=== PATIENT | male | born 1950 | race Caucasian/White ===

== ENCOUNTER 2017-06-04 08:21 | Emergency (ER) | payer OTHER ==
[2017-06-04 08:29] VITALS: BMI 33.9
[2017-06-04] MEDS ORDERED: SODIUM CHLORIDE 1,000 ML IV STA ×2 (08:36→10:52)
--- NOTE | 2017-06-04 09:32 | PDOC ---
History of Present Illness - General Chief Complaint: SIRS, Suspected/Possible Stated Complaint: FEVER, CONSTIPATED Time Seen by Provider: 06/04/17 08:35 History Source: Patient Exam Limitations: No Limitations - History of Present Illness Initial Comments: 06/04/17 09:58 67-year-old male presents with fever for the past 2 days relieved with Tylenol associated with nausea without vomiting, constipation and generalized abdominal bloating. Patient states mild dry cough but denies difficulty breathing, chest pain, or sore throat. Patient also denies headache and myalgia. Patient does state his glucose was approximately 300 this morning when he checked it. Patient states is on insulin and takes it routinely. Patient denies recent travel, recent illness, recent sick contact. Timing/Duration: other ( 3 days) Associated Symptoms: reports: cough, fever/chills, loss of appetite, nausea/ vomiting, weakness Past History - Travel Traveled outside of the country in the last 30 days: No - Past Medical History Allergies/Adverse Reactions: Allergies Allergy/AdvReac Type Severity Reaction Status Date / Time No Known Drug Allergies Allergy Verified 06/04/17 08:26 Home Medications: Ambulatory Orders Lantus 30 units PO BID 06/04/17 Lisinopril 10 mg PO DAILY 06/04/17 Prilosec 20 mg PO DAILY 06/04/17 Simvastatin 20 mg PO DAILY 06/04/17 Anemia: No Asthma: No Cancer: No Cardiac Disorders: No CVA: No COPD: No CHF: No Dementia: No Diabetes: Yes GI Disorders: No Disorders: No HTN: Yes Hypercholesterolemia: Yes Liver Disease: No Seizures: No Thyroid Disease: No - Surgical History Abdominal Surgery: No Appendectomy: No Cardiac Surgery: No Cholecystectomy: No Lung Surgery: No Neurologic Surgery: No Orthopedic Surgery: No - Immunization History Immunization Up to Date: Yes - Suicide/Smoking/Psychosocial Hx Smoking History: Former smoker Have you smoked in the past 12 months: No If you are a former smoker, when did you quit?: 15YRS AGO Information on smoking cessation initiated: No Hx Alcohol Use: Yes (SOCIALLY) Substance Use Type: None Hx Substance Use Treatment: No Patient Lives Alone: No Review of Systems - Review of Systems Constitutional: Yes: Chills, Fever Respiratory: Yes: Cough. No: Shortness of Breath Cardiac (ROS): No: Symptoms Reported ABD/GI: Yes: Constipated, Nausea, Poor Appetite, Poor Fluid Intake : No: Symptoms Reported Musculoskeletal: No: Symptoms Reported Integumentary: No: Symptoms Reported Neurological: No: Symptoms reported Endocrine: Yes: See HPI *Physical Exam - Vital Signs Last Vital Signs Temp Pulse Resp BP Pulse Ox 98.3 F 70 20 126/73 94 L 06/04/17 08:26 06/04/17 08:26 06/04/17 08:26 06/04/17 08:26 06/04/17 08:26 - Physical Exam General Appearance: Yes: Nourished, Appropriately Dressed. No: Apparent Distress HEENT: positive: EOMI, SALLIE Neck: positive: Supple Respiratory/Chest: positive: Lungs Clear, Normal Breath Sounds. negative: Respiratory Distress, Accessory Muscle Use Cardiovascular: positive: Regular Rhythm, Regular Rate. negative: Murmur Gastrointestinal/Abdominal: positive: Normal Bowel Sounds, Soft, Distended. negative: Tenderness Extremity: positive: Normal Capillary Refill Integumentary: positive: Normal Color, Dry, Warm Neurologic: positive: Normal Mood/Affect, Motor Strength 5/5 (ambulatory) Heart Score/ECG Review - ECG Intrepretation Rhythm: Regular Rhythm (rate 69. normal sinus rhythm. no st depression/ elevation noted. intervals are regular) ED Treatment Course - LABORATORY CBC & Chemistry Diagram: 06/04/17 09:34 06/04/17 09:34 - RADIOLOGY Radiology Studies Ordered: Category Date Time Status ABDOMEN FLAT & UPRIGHT [RAD] Stat Radiology 06/04/17 08:53 Ordered CHEST X-RAY PORTABLE* [RAD] Stat Radiology 06/04/17 08:36 Ordered Medical Decision Making - Medical Decision Making 06/04/17 09:51 Patient here with intermittent fever for the past 2 days relieved with Tylenol associated with dry cough decreased appetite associated with nausea and constipation. Patient exam had no acute findings except for abdominal distention. Patient was ordered for septic workup including an abdominal flat and upright. 06/04/17 10:52 Laboratory Tests 06/04/17 06/04/17 06/04/17 09:34 09:34 09:34 WBC 9.1 Hgb 14.9 D Hct 42.5 D Plt Count 161 D VBG pH 7.39 POC VBG pCO2 45.4 POC VBG pO2 41.0 Mixed VBG HCO3 26.7 H Sodium 133 L Potassium 3.7 Chloride 97 L Carbon Dioxide 27 Anion Gap 9 BUN 19 H Random Glucose 314 H* D Calcium 8.3 L Total Bilirubin 1.2 H Albumin 3.4 D normal saline # 2 bolus ordered 06/04/17 11:30 Laboratory Tests 06/04/17 09:34 Urine Protein 1+ H D Urine Glucose (UA) 3+ H Ur Leukocyte Esterase Negative Urine RBC (Auto) 2 06/04/17 11:34 Patient with infiltrates in the right mid and lower lung. Patient will be ordered for Levaquin upon discharge *DC/Admit/Observation/Transfer Diagnosis at time of Disposition: Pneumonia involving right lung - Discharge Dispostion Disposition: HOME Condition at time of disposition: Good - Referrals Referrals: Tyler Bennett MD [Primary Care Provider] - - Patient Instructions Printed Discharge Instructions: DI for Pneumonia -- Adult Additional Instructions: Please take Tylenol for fever and discomfort. Please drink plenty of fluids. Please check your sugar routinely. Please take antibiotics until completed. - Post Discharge Activity
[2017-06-04 09:48] LABS: BASO % 0.4 % (0-2.0); EOS % 1.7 % (0-4.5); HEMATOCRIT 42.5 % (35.4-49); HEMOGLOBIN 14.9 GM/dL (11.7-16.9); MCH 31.2 pg (25.7-33.7); MEAN CELL VOLUME 89.3 fl (80-96); MONO % 7.6 % (3.8-10.2); NEUT % 82.3 % (42.8-82.8); PLATELET COUNT 161 K/MM3 (134-434); RBC 4.76 M/mm3 (4.00-5.60); RDW 12.6 % (11.9-15.9); WHITE BLOOD COUNT 9.1 K/mm3 (4.0-10.0)
[2017-06-04 09:50] LABS: VENOUS PC02 45.4 mmHg (38-52); VENOUS PH 7.39 (7.32-7.42)
[2017-06-04 10:19] LABS: ALBUMIN 3.4 g/dl (3.4-5.0); ANION GAP 9 (8-16); BLOOD UREA NITROGEN 19 mg/dL (7-18); CALCIUM 8.3 mg/dL (8.5-10.1); CHLORIDE 97 mmol/L (98-107); CO2 27 mmol/L (21-32); SGPT/ALT 21 U/L (12-78); SODIUM 133 mmol/L (136-145)
[2017-06-04 10:21] LABS: ALK PHOS 67 U/L (45-117); BILIRUBIN,TOTAL 1.2 mg/dL (0.2-1.0); CREATININE 1.3 mg/dL (0.7-1.3)
[2017-06-04 10:33] LABS: POTASSIUM 3.7 mmol/L (3.5-5.1); SGOT/AST 24 U/L (15-37)
[2017-06-04 10:34] LABS: GLUCOSE,RANDOM 314 mg/dL (74-106)
[2017-06-04 11:15] LABS: URINE APPEARANCE CLEAR; URINE BILIRUBIN NEGATIVE (NEGATIVE); URINE BLOOD NEGATIVE (NEGATIVE); URINE COLOR YELLOW; URINE GLUCOSE (UA) 3+ (NEGATIVE); URINE KETONE NEGATIVE (NEGATIVE); URINE LEUK ESTERASE NEGATIVE (NEGATIVE); URINE NITRITE NEGATIVE (NEGATIVE); URINE UROBILINOGEN 4.0 E.U/dl mg/dL (0.2-1.0)
[2017-06-04 11:17] LABS: URINE PROTEIN 1+ (NEGATIVE)
[2017-06-04 11:20] LABS: EPI CELLS RARE /HPF (FEW); URINE HYALINE CAST 10 /lpf; URINE MUCUS RARE
[2017-06-04 12:19] VITALS: BP 135/78; PULSE 73; TEMP 98.8
--- NOTE | 2017-06-04 13:41 | EKG ---
Test Reason : Blood Pressure : / mmHG Vent. Rate : 069 BPM Atrial Rate : 069 BPM P-R Int : 190 ms QRS Dur : 082 ms QT Int : 400 ms P-R-T Axes : 039 -27 001 degrees QTc Int : 428 ms NORMAL SINUS RHYTHM NORMAL ECG WHEN COMPARED WITH ECG OF 08-DEC-2011 08:43, NO SIGNIFICANT CHANGE WAS FOUND Confirmed by RACHEL NAVARRO MD ([id number]) on 06/04/2017 1:40:55 PM Referred By: Confirmed By:RACHEL NAVARRO MD
== END 2017-06-04 12:19 | disposition home or self-care (01) ==
LOC: JER 08:21
PROC: 3E0337Z Introduction of Electrolytic and Water Balance Substance into Peripheral Vein, Percutaneous Approach (ICD-10-PCS; principal; 2017-06-04)
DX: J18.9 Pneumonia, unspecified organism (principal); I10 Essential (primary) hypertension; E11.9 Type 2 diabetes mellitus without complications; E78.00 Pure hypercholesterolemia, unspecified; Z79.4 Long term (current) use of insulin
CPT/HCPCS: 36415; 71046-TC-FY; 74019-TC-FY; 80053; 81003; 81015; 82803; 83605; 85025; 87040; 87086; 93005; 93010; 99283-25

== ENCOUNTER 2020-03-15 19:31 | Emergency (ER) | payer OTHER ==
[2020-03-15 19:34] VITALS: BMI 35.5
[2020-03-15] MEDS ORDERED: LACTATED RINGERS SOLUTION 1,000 ML/1,000 ML INFUS.BAG IV ONE (19:48)
[2020-03-15] MEDS ORDERED: ACETAMINOPHEN 1000 MG/100 ML VIAL (NON FORMULARY) IVPB ONE (19:54)
[2020-03-15] MEDS ORDERED: ACETAMINOPHEN INJECTION 100 ML IVPB ONE (19:54)
[2020-03-15] MEDS ORDERED: ONDANSETRON 4 MG/2 ML VIAL ONE (19:55)
[2020-03-15 20:37] LABS: BASO % 0.2 % (0-2.0); EOS % 2.7 % (0-4.5); HEMATOCRIT 43.1 % (35.4-49); HEMOGLOBIN 14.2 GM/dL (11.7-16.9); LYMPH % 4.4 % (8-40); MCH 29.9 pg (25.7-33.7); MEAN CELL VOLUME 90.6 fl (80-96); MEAN PLT VOLUME 7.7 fl (7.5-11.1); MONO % 5.9 % (3.8-10.2); NEUT % 86.8 % (42.8-82.8); PLATELET COUNT 196 K/MM3 (134-434); RBC 4.76 M/mm3 (4.00-5.60); RDW 13.3 % (11.9-15.9); WHITE BLOOD COUNT 8.6 K/mm3 (4.0-10.0)
[2020-03-15 20:41] LABS: VENOUS BASE EXCESS -5.4 mmol/L (-2-2); VENOUS O2 SATURATION 42.5 % (70-80); VENOUS PCO2 52.1 mmHg (38-52); VENOUS PH 7.253 (7.310-7.410)
[2020-03-15 20:48] LABS: INR 0.95 (0.83-1.09); PROTHROMBIN TIME (PATIENT) 11.7 SEC (9.7-13.0)
[2020-03-15 20:51] LABS: ACTIVATED PTT 30.1 SECONDS (25.2-36.5)
[2020-03-15 21:10] LABS: CHLORIDE 106 mmol/L (98-107); POTASSIUM 4.8 mmol/L (3.5-5.1); SODIUM 144 mmol/L (136-145)
[2020-03-15 21:12] LABS: ALBUMIN 4.3 g/dl (3.4-5.0); ANION GAP 10 MMOL/L (8-16); BLOOD UREA NITROGEN 14.3 mg/dL (7-18); CALCIUM 9.8 mg/dL (8.5-10.1); CO2 27 mmol/L (21-32)
[2020-03-15 21:13] LABS: GLUCOSE,RANDOM 179 mg/dL (74-106)
[2020-03-15 21:15] LABS: SGOT/AST 24 U/L (15-37); SGPT/ALT 42 U/L (13-61)
[2020-03-15 21:16] LABS: CREATININE 1.4 mg/dL (0.55-1.3)
[2020-03-15 21:17] LABS: BILIRUBIN,TOTAL 0.7 mg/dL (0.2-1)
[2020-03-15 21:18] LABS: ALK PHOS 86 U/L (45-117)
[2020-03-15 21:51] LABS: EPI CELLS 3 /uL (0-25.1); HYALINE CASTS 0 /uL (0-3.1); PH,URINE 6.5 (5.0-8.0); URINE APPEARANCE CLEAR; URINE BACTERIA 27 /uL (0-1359); URINE BILIRUBIN NEGATIVE (NEGATIVE); URINE COLOR YELLOW; URINE GLUCOSE (UA) 1+ (NEGATIVE); URINE KETONE NEGATIVE (NEGATIVE); URINE LEUK ESTERASE NEGATIVE (NEGATIVE); URINE NITRITE NEGATIVE (NEGATIVE); URINE PROTEIN 3+ (NEGATIVE); URINE RBC 7 /uL (0-23.9); URINE WBC 1 /uL (0-25.8)
[2020-03-15] MEDS ORDERED: SODIUM CHLORIDE 0.9% 1000 ML INFUS.BAG IV ONE (23:30)
[2020-03-16 00:47] LABS: VENOUS BASE EXCESS -2.7 mmol/L (-2-2); VENOUS O2 SATURATION 39.7 % (70-80); VENOUS PCO2 46.2 mmHg (38-52); VENOUS PH 7.325 (7.310-7.410)
[2020-03-16 01:23] VITALS: BP 145/84; PULSE 95; TEMP 98.7
== END 2020-03-16 02:33 | disposition home or self-care (01) ==
LOC: JER 19:31
PROC: 3E0333Z Introduction of Anti-inflammatory into Peripheral Vein, Percutaneous Approach (ICD-10-PCS; principal; 2020-03-15)
PROC: 3E033GC Introduction of Other Therapeutic Substance into Peripheral Vein, Percutaneous Approach (ICD-10-PCS; 2020-03-15)
DX: R11.2 Nausea with vomiting, unspecified (principal); R50.9 Fever, unspecified
CPT/HCPCS: 36415; 71045-TC-FY; 74177-TC; 76705-TC; 80053; 81003; 82010; 82803; 82962; 83605; 84484; 85025; 85610; 85730; 87040; 87086; 93005; 93010; 99285-25; C9803; J0131; Q9967; U0003